=== PATIENT | female | born 1950 | race Caucasian/White ===

== ENCOUNTER 2019-02-10 19:04 | Inpatient (IN) ==
[2019-02-10] MEDS ORDERED: SODIUM CHLORIDE 0.9% 1,000 ML IV STA (19:39)
[2019-02-10] MEDS ORDERED: ACETAMINOPHEN 500 MG TABLET PO STA (19:44)
[2019-02-10] MEDS ORDERED: ONDANSETRON 4 MG/2 ML VIAL IV STA (19:44)
[2019-02-10 19:47] LABS: Basophils % 0.2 % (0.0-0.8); Eosinophils % 0.2 % (0.00-10.9); Hematocrit 44.3 VOL% (35.7-47.0); Immature Granulocytes % 0.2 %; Immature Granulocytes Absolute 0.01 #; Lymphocytes % 21.6 % (21.3-54.2); Mean Corpuscular HGB Conc 31.6 GM/DL (32-36); Mean Corpuscular Volume 98.7 FL (87-102); Mean Platelet Volume 10.4 FL (9.6-12.0); Monocytes % 4.7 % (1.7-12.7); Neutrophils % 73.1 % (38.7-73.9); Platelet Count 154 T/CUMM (130-400); Red Blood Count 4.49 MC/CUMM (3.8-5.5); Red Cell Distribution Width 15.5 % (9.3-17.3); White Blood Count 4.7 T/CUMM (4-12)
[2019-02-10 19:58] LABS: INR 1.3; PT Patient Result 14.4 SECS
[2019-02-10 20:10] LABS: Albumin 4.3 G/DL (3.4-5.0); Bilirubin,Total 2.1 MG/DL (0.2-1.0); Calcium 9.8 MG/DL (8.5-10.1); Osmolality,Calculated 275.7 MOS/KG (273-304); Total Protein 7.8 G/DL (6.4-8.3)
[2019-02-10 20:36] LABS: Apearance,Urine CLEAR (Clear); Bilirubin,Urine Negative (Negative); Blood, Urine Negative (Negative); Glucose,Urine (UA) Negative (Negative); Ketones,Urine 5 mg/dL (Negative); Nitrite,Urine Negative (Negative); Protein,Urine 30 MG/DL; RBC,Urine 2 /HPF (0-4); Urine Color Amber (Yellow); Urine Specific Gravity 1.016 (1.001-1.035); WBC,Urine 1 /HPF (0-6)
[2019-02-10 20:45] LABS: Barbiturates Screen,Urine Negative (Negative); Benzodiazepines Screen,Urine Negative (Negative); Cannabinoid Screen,Urine Negative (Negative); Opiate Screen,Urine Positive (Negative); Phencyclidine Screen,Urine Negative (Negative)
[2019-02-10] MEDS ORDERED: CIPROFLOXACIN INJ 400 MG in PREMIX 1 EACH IV STA (21:44)
[2019-02-10] MEDS ORDERED: METRONIDAZOLE IV ONE (21:45)
[2019-02-10] MEDS ORDERED: BUPIVACAINE MPF 0.25% /EPI 30 ML VIAL ONE (22:19)
[2019-02-10] MEDS ORDERED: LIDOCAINE 1%/EPI INJ 20 ML VIAL ONE (22:19)
[2019-02-10] MEDS ORDERED: PROMETHAZINE INJ 25 MG in SODIUM CHLORIDE 0.9% 50 ML IV PRN (22:42)
[2019-02-10] MEDS ORDERED: ONDANSETRON 4 MG/2 ML VIAL IV PRN ×2 (22:42→23:30)
[2019-02-10] MEDS ORDERED: MEPERIDINE 25 MG/1 ML VIAL IV PRN (22:42)
[2019-02-10] MEDS ORDERED: HYDROmorphone 2 MG/1 ML VIAL IV PRN (22:42)
[2019-02-10] MEDS ORDERED: MORPHINE 4 MG/1 ML VIAL IV PRN (23:30)
[2019-02-10] MEDS ORDERED: ACETAMINOPHEN 325 MG TABLET PO PRN (23:30)
[2019-02-10] MEDS ORDERED: dilTIAZem Drip 125 MG/125 ML PREMIX IV ONE (23:40)
[2019-02-10] MEDS ORDERED: SUGAMMADEX 200 MG/2 ML VIAL IV ONE (23:41)
[2019-02-10] MEDS ORDERED: ONDANSETRON 4 MG/2 ML VIAL ONE (23:50)
[2019-02-10] MEDS ORDERED: HYDROmorphone 2 MG/1 ML VIAL ONE (23:50)
[2019-02-11] MEDS ORDERED: LACTATED RINGERS 1,000 ML IV ONE ×2 (00:02→00:22)
[2019-02-11] MEDS ORDERED: fentaNYL 100 MCG/2 ML VIAL ONE (00:21)
[2019-02-11] MEDS ORDERED: SEVOFLURANE 1 UNIT/15 MINUTE INH ONE (00:21)
[2019-02-11] MEDS ORDERED: ONDANSETRON 4 MG/2 ML VIAL ONE (00:21)
[2019-02-11] MEDS ORDERED: PHENYLEPHRINE 1 MG/10 ML SYRINGE IV ONE (00:22)
[2019-02-11] MEDS ORDERED: GLYCOPYRROLATE 0.4 MG/2 ML VIAL ONE (00:22)
[2019-02-11] MEDS ORDERED: DILTIAZEM 50 MG/10 ML VIAL IV ONE (00:22)
[2019-02-11] MEDS ORDERED: ROCURONIUM 100 MG/10 ML VIAL IV ONE (00:22)
[2019-02-11] MEDS ORDERED: ETOMIDATE 40 MG/20 ML VIAL IV ONE (00:22)
[2019-02-11] MEDS ORDERED: METOPROLOL TARTRATE 5 MG/5 ML VIAL IV ONE (00:22)
[2019-02-11] MEDS ORDERED: ESMOLOL 100 MG/10 ML VIAL IV ONE (00:22)
[2019-02-11] MEDS ORDERED: NEOSTIGMINE 10 MG/10 ML VIAL ONE (00:22)
[2019-02-11] MEDS: NOREPINEPHRINE 8 MG in SODIUM CHLORIDE 0.9% 242 ML IV PRN ×2 (00:30→10:09)
[2019-02-11] MEDS: LACTATED RINGERS 1,000 ML IV SCH ×3 (01:03→19:31)
[2019-02-11] MEDS: dilTIAZem Drip 125 MG/125 ML PREMIX IV SCH (01:06)
[2019-02-11 05:50] LABS: Basophils % 0.4 % (0.0-0.8); Hematocrit 40.1 VOL% (35.7-47.0); Hemoglobin 12.8 GM/DL (12.0-16.0); Immature Granulocytes % 0.4 %; Immature Granulocytes Absolute 0.04 #; Lymphocytes # 1.2 10*3/uL (1.4-4.0); Lymphocytes % 11.3 % (21.3-54.2); Mean Corpuscular HGB Conc 31.9 GM/DL (32-36); Monocytes % 7.1 % (1.7-12.7); Neutrophils % 80.8 % (38.7-73.9); Platelet Count 143 T/CUMM (130-400); Red Blood Count 4.05 MC/CUMM (3.8-5.5); Red Cell Distribution Width 15.7 % (9.3-17.3); White Blood Count 10.8 T/CUMM (4-12)
[2019-02-11 06:07] LABS: Calcium 9.1 MG/DL (8.5-10.1); Osmolality,Calculated 275.7 MOS/KG (273-304)
[2019-02-11] MEDS: metroNIDAZOLE INJ 500 MG in PREMIX 1 EACH IV SCH ×3 (06:09→22:22)
[2019-02-11 06:29] LABS: Anisocytosis 1+; Band Neutrophils 10 % (0-10); Lymphocytes 5 % (20-55); Segmented Neutrophils 84 % (50-85); Total Cells Counted 100
[2019-02-11 06:30] LABS: Platelet Estimate Adequate
[2019-02-11] MEDS ORDERED: KETOROLAC 30 MG/1 ML VIAL IV ONE (07:36)
[2019-02-11] MEDS ORDERED: PANTOPRAZOLE 40 MG TABLET PO SCH (09:00)
[2019-02-11] MEDS: PANTOPRAZOLE 40 MG VIAL IV SCH (10:08)
[2019-02-11] MEDS: CIPROFLOXACIN INJ 400 MG in PREMIX 1 EACH IV SCH ×3 (10:16→20:44)
[2019-02-11] MEDS: DILTIAZEM CD 120 MG CAPSULE PO SCH ×2 (12:42→20:44)
[2019-02-11] MEDS: HYDROXYCHLOROQUINE 200 MG TABLET PO SCH (12:43)
[2019-02-11] MEDS: KETOROLAC 15 MG/1 ML VIAL IV SCH ×2 (12:43→18:30)
[2019-02-11] MEDS: METOPROLOL TARTRATE 100 MG TABLET PO SCH ×2 (12:44→20:45)
[2019-02-11] MEDS: GABAPENTIN 300 MG CAPSULE PO SCH ×2 (14:49→20:44)
[2019-02-11] MEDS ORDERED: WARFARIN 4 MG TABLET PO SCH (18:00)
[2019-02-12] MEDS: dilTIAZem Drip 125 MG/125 ML PREMIX IV SCH ×2 (00:14→22:58)
[2019-02-12] MEDS: KETOROLAC 15 MG/1 ML VIAL IV SCH ×4 (02:05→18:07)
[2019-02-12] MEDS: LACTATED RINGERS 1,000 ML IV SCH ×3 (02:06→14:34)
[2019-02-12] MEDS: metroNIDAZOLE INJ 500 MG in PREMIX 1 EACH IV SCH ×3 (05:52→23:17)
[2019-02-12] MEDS: LEVOTHYROXINE 50 MCG TABLET PO SCH (06:21)
[2019-02-12 06:28] LABS: Basophils % 0.1 % (0.0-0.8); Eosinophils # 0.2 10*3/uL (0.0-0.87); Eosinophils % 2.3 % (0.00-10.9); Hematocrit 35.8 VOL% (35.7-47.0); Hemoglobin 11.4 GM/DL (12.0-16.0); Immature Granulocytes % 0.4 %; Immature Granulocytes Absolute 0.03 #; Lymphocytes # 0.9 10*3/uL (1.4-4.0); Lymphocytes % 13.1 % (21.3-54.2); Mean Corpuscular HGB Conc 31.8 GM/DL (32-36); Mean Corpuscular Volume 99.4 FL (87-102); Mean Platelet Volume 10.9 FL (9.6-12.0); Monocytes % 5.9 % (1.7-12.7); Neutrophils % 78.2 % (38.7-73.9); Platelet Count 98 T/CUMM (130-400); Red Cell Distribution Width 15.6 % (9.3-17.3); White Blood Count 7.1 T/CUMM (4-12)
[2019-02-12 06:30] LABS: INR 2.1
[2019-02-12 06:35] LABS: Calcium 9.1 MG/DL (8.5-10.1); Osmolality,Calculated 285.7 MOS/KG (273-304); PT Patient Result 22.2 SECS
[2019-02-12 07:15] LABS: Anisocytosis 1+; Macrocytosis 1+; Platelet Estimate Decreased
[2019-02-12] MEDS: PANTOPRAZOLE 40 MG VIAL IV SCH (08:57)
[2019-02-12] MEDS: ASPIRIN EC 81 MG TABLET PO SCH (08:58)
[2019-02-12] MEDS: DILTIAZEM CD 120 MG CAPSULE PO SCH ×2 (08:59→20:25)
[2019-02-12] MEDS: HYDROXYCHLOROQUINE 200 MG TABLET PO SCH (08:59)
[2019-02-12] MEDS: GABAPENTIN 300 MG CAPSULE PO SCH ×3 (08:59→20:26)
[2019-02-12] MEDS: SERTRALINE 50 MG TABLET PO SCH (08:59)
[2019-02-12] MEDS: CIPROFLOXACIN INJ 400 MG in PREMIX 1 EACH IV SCH ×2 (09:12→20:26)
[2019-02-12] MEDS: METOPROLOL TARTRATE 100 MG TABLET PO SCH ×2 (09:14→20:26)
[2019-02-12] MEDS ORDERED: POLYVINYL ALCOHOL 1.4% OPH SOLN 15 ML BOTTLE BOTH EYES PRN (09:29)
[2019-02-12] MEDS ORDERED: DEXTROSE 10% 250 ML BAG IV PRN (09:29)
[2019-02-12] MEDS ORDERED: GLUCAGON 1 MG VIAL IM PRN (09:29)
[2019-02-12] MEDS: INSULIN REGULAR 100 UNIT/ML SUBCUT SCH ×3 (12:21→23:18)
[2019-02-12] MEDS: WARFARIN 4 MG TABLET PO SCH (18:06)
[2019-02-13] MEDS: LACTATED RINGERS 1,000 ML IV SCH ×4 (00:28→19:30)
[2019-02-13] MEDS: KETOROLAC 15 MG/1 ML VIAL IV SCH ×4 (01:20→18:15)
[2019-02-13 04:57] LABS: Eosinophils # 0.2 10*3/uL (0.0-0.87); Eosinophils % 4.4 % (0.00-10.9); Hematocrit 32.1 VOL% (35.7-47.0); Hemoglobin 10.1 GM/DL (12.0-16.0); Immature Granulocytes % 0.4 %; Immature Granulocytes Absolute 0.02 #; Lymphocytes # 0.6 10*3/uL (1.4-4.0); Lymphocytes % 11.4 % (21.3-54.2); Mean Corpuscular HGB Conc 31.5 GM/DL (32-36); Mean Platelet Volume 11.3 FL (9.6-12.0); Monocytes % 7.3 % (1.7-12.7); Neutrophils % 76.5 % (38.7-73.9); Platelet Count 82 T/CUMM (130-400); Red Blood Count 3.21 MC/CUMM (3.8-5.5); Red Cell Distribution Width 15.6 % (9.3-17.3); White Blood Count 4.8 T/CUMM (4-12)
[2019-02-13 05:24] LABS: Albumin 2.4 G/DL (3.4-5.0); Bilirubin,Total 1.1 MG/DL (0.2-1.0); Calcium 8.9 MG/DL (8.5-10.1); Osmolality,Calculated 281.1 MOS/KG (273-304); Total Protein 5.1 G/DL (6.4-8.3)
[2019-02-13] MEDS: INSULIN REGULAR 100 UNIT/ML SUBCUT SCH ×3 (05:45→17:45)
[2019-02-13 05:48] LABS: Anisocytosis 1+; Band Neutrophils 5 % (0-10); Eosinophils 1 % (0-10); Lymphocytes 12 % (20-55); Segmented Neutrophils 75 % (50-85); Total Cells Counted 100
[2019-02-13 05:49] LABS: Ovalocytes 1+; Platelet Estimate Decreased
[2019-02-13 06:03] LABS: INR 3.6
[2019-02-13 06:06] LABS: PT Patient Result 38.2 SECS
[2019-02-13] MEDS: LEVOTHYROXINE 50 MCG TABLET PO SCH (06:31)
[2019-02-13] MEDS: metroNIDAZOLE INJ 500 MG in PREMIX 1 EACH IV SCH ×3 (06:31→22:59)
[2019-02-13] MEDS: DILTIAZEM CD 120 MG CAPSULE PO SCH (09:30)
[2019-02-13] MEDS: GABAPENTIN 300 MG CAPSULE PO SCH ×3 (09:30→20:23)
[2019-02-13] MEDS: SERTRALINE 50 MG TABLET PO SCH (09:30)
[2019-02-13] MEDS: ASPIRIN EC 81 MG TABLET PO SCH (09:30)
[2019-02-13] MEDS: CIPROFLOXACIN INJ 400 MG in PREMIX 1 EACH IV SCH ×2 (09:30→20:23)
[2019-02-13] MEDS: PANTOPRAZOLE 40 MG VIAL IV SCH (09:30)
[2019-02-13] MEDS: HYDROXYCHLOROQUINE 200 MG TABLET PO SCH (09:30)
[2019-02-13] MEDS: METOPROLOL TARTRATE 100 MG TABLET PO SCH ×2 (09:48→20:22)
[2019-02-13] MEDS: dilTIAZem Drip 125 MG/125 ML PREMIX IV SCH (23:56)
[2019-02-14] MEDS: KETOROLAC 15 MG/1 ML VIAL IV SCH ×4 (00:11→18:45)
[2019-02-14] MEDS: INSULIN REGULAR 100 UNIT/ML SUBCUT SCH ×4 (00:27→18:41)
[2019-02-14] MEDS: ALBUTEROL/IPRATROPIUM 3 ML NEB RESP TX SCH ×4 (01:31→19:03)
[2019-02-14 05:04] LABS: INR 3.5
[2019-02-14 05:10] LABS: PT Patient Result 38.1 SECS
[2019-02-14] MEDS: LACTATED RINGERS 1,000 ML IV SCH (06:17)
[2019-02-14] MEDS: metroNIDAZOLE INJ 500 MG in PREMIX 1 EACH IV SCH ×3 (06:34→23:22)
[2019-02-14] MEDS: LEVOTHYROXINE 50 MCG TABLET PO SCH (06:34)
[2019-02-14] MEDS: METOPROLOL TARTRATE 100 MG TABLET PO SCH (08:01)
[2019-02-14] MEDS: DILTIAZEM CD 120 MG CAPSULE PO SCH ×2 (08:01→20:53)
[2019-02-14] MEDS: HYDROXYCHLOROQUINE 200 MG TABLET PO SCH (08:02)
[2019-02-14] MEDS: ASPIRIN EC 81 MG TABLET PO SCH (08:02)
[2019-02-14] MEDS: GABAPENTIN 300 MG CAPSULE PO SCH ×3 (08:02→20:53)
[2019-02-14] MEDS: SERTRALINE 50 MG TABLET PO SCH (08:02)
[2019-02-14] MEDS: dilTIAZem Drip 125 MG/125 ML PREMIX IV SCH ×2 (08:11→23:04)
[2019-02-14] MEDS: PANTOPRAZOLE 40 MG VIAL IV SCH (09:57)
[2019-02-14] MEDS: CIPROFLOXACIN INJ 400 MG in PREMIX 1 EACH IV SCH ×2 (09:59→20:54)
[2019-02-14] MEDS ORDERED: FUROSEMIDE 40 MG/4 ML VIAL IV ONE (10:24)
[2019-02-14] MEDS ORDERED: TEMAZEPAM 15 MG CAPSULE PO PRN (10:28)
[2019-02-14] MEDS ORDERED: BISACODYL 10 MG SUPP RECTAL PRN (14:48)
[2019-02-14] MEDS: METOPROLOL TARTRATE 50 MG TABLET PO SCH (20:54)
[2019-02-15] MEDS: ALBUTEROL/IPRATROPIUM 3 ML NEB RESP TX SCH ×4 (00:27→19:49)
[2019-02-15] MEDS: KETOROLAC 15 MG/1 ML VIAL IV SCH ×4 (01:38→21:25)
[2019-02-15] MEDS: INSULIN REGULAR 100 UNIT/ML SUBCUT SCH ×5 (01:38→21:50)
[2019-02-15 05:10] LABS: Basophils % 0.4 % (0.0-0.8); Eosinophils # 0.4 10*3/uL (0.0-0.87); Hematocrit 35.1 VOL% (35.7-47.0); Hemoglobin 11.2 GM/DL (12.0-16.0); Immature Granulocytes % 0.6 %; Immature Granulocytes Absolute 0.03 #; Lymphocytes # 0.9 10*3/uL (1.4-4.0); Lymphocytes % 17.1 % (21.3-54.2); Mean Corpuscular HGB Conc 31.9 GM/DL (32-36); Monocytes % 8.5 % (1.7-12.7); Neutrophils % 66.4 % (38.7-73.9); Platelet Count 93 T/CUMM (130-400); Red Blood Count 3.51 MC/CUMM (3.8-5.5); Red Cell Distribution Width 15.5 % (9.3-17.3); White Blood Count 5.3 T/CUMM (4-12)
[2019-02-15 05:12] LABS: Calcium 8.7 MG/DL (8.5-10.1); Osmolality,Calculated 284.8 MOS/KG (273-304)
[2019-02-15 05:24] LABS: PT Patient Result 43.1 SECS
[2019-02-15 05:37] LABS: Eosinophils 7 % (0-10); Lymphocytes 19 % (20-55); Nucleated Red Blood Cells 1 (0-5); Segmented Neutrophils 68 % (50-85); Total Cells Counted 100
[2019-02-15 05:38] LABS: Burr Cells Slight; Hypochromasia 1+; Ovalocytes Slight; Platelet Estimate Decreased
[2019-02-15] MEDS: LEVOTHYROXINE 50 MCG TABLET PO SCH (06:34)
[2019-02-15] MEDS: metroNIDAZOLE INJ 500 MG in PREMIX 1 EACH IV SCH ×3 (06:34→23:20)
[2019-02-15] MEDS ORDERED: POTASSIUM CHLORIDE 20 MEQ TABLET PO ONE (08:00)
[2019-02-15] MEDS ORDERED: MAGNESIUM SULF RIDER 2 GM in PREMIX 1 EACH IV ONE (08:00)
[2019-02-15] MEDS: GABAPENTIN 300 MG CAPSULE PO SCH ×3 (08:39→21:55)
[2019-02-15] MEDS: PANTOPRAZOLE 40 MG TABLET PO SCH (08:39)
[2019-02-15] MEDS: SERTRALINE 50 MG TABLET PO SCH (08:39)
[2019-02-15] MEDS: HYDROXYCHLOROQUINE 200 MG TABLET PO SCH (08:39)
[2019-02-15] MEDS: ASPIRIN EC 81 MG TABLET PO SCH (08:39)
[2019-02-15] MEDS: DILTIAZEM CD 120 MG CAPSULE PO SCH ×2 (08:40→22:44)
[2019-02-15] MEDS: POTASSIUM CHLORIDE 20 MEQ TABLET PO SCH ×2 (10:06→13:25)
[2019-02-15] MEDS: METOPROLOL TARTRATE 50 MG TABLET PO SCH ×2 (10:06→22:46)
[2019-02-15] MEDS: CIPROFLOXACIN INJ 400 MG in PREMIX 1 EACH IV SCH ×2 (10:42→22:44)
[2019-02-15] MEDS ORDERED: ZALEPLON 5 MG CAPSULE PO ONE (20:32)
[2019-02-16] MEDS: ALBUTEROL/IPRATROPIUM 3 ML NEB RESP TX SCH ×4 (00:47→20:03)
[2019-02-16] MEDS: dilTIAZem Drip 125 MG/125 ML PREMIX IV SCH (01:58)
[2019-02-16] MEDS: KETOROLAC 15 MG/1 ML VIAL IV SCH ×2 (03:34→09:36)
[2019-02-16 05:14] LABS: Basophils % 0.3 % (0.0-0.8); Eosinophils # 0.5 10*3/uL (0.0-0.87); Eosinophils % 8.5 % (0.00-10.9); Hematocrit 34.2 VOL% (35.7-47.0); Hemoglobin 10.8 GM/DL (12.0-16.0); Immature Granulocytes % 0.7 %; Immature Granulocytes Absolute 0.04 #; Lymphocytes # 1.2 10*3/uL (1.4-4.0); Lymphocytes % 20.4 % (21.3-54.2); Mean Corpuscular HGB Conc 31.6 GM/DL (32-36); Mean Corpuscular Volume 100.3 FL (87-102); Mean Platelet Volume 10.7 FL (9.6-12.0); Monocytes % 10.4 % (1.7-12.7); Neutrophils % 59.7 % (38.7-73.9); Platelet Count 111 T/CUMM (130-400); Red Blood Count 3.41 MC/CUMM (3.8-5.5); Red Cell Distribution Width 15.5 % (9.3-17.3)
[2019-02-16 05:24] LABS: INR 2.7
[2019-02-16 05:27] LABS: PT Patient Result 29.4 SECS
[2019-02-16 05:37] LABS: Calcium 8.8 MG/DL (8.5-10.1); Osmolality,Calculated 284.8 MOS/KG (273-304)
[2019-02-16 05:41] LABS: Anisocytosis 1+
[2019-02-16 05:42] LABS: Platelet Estimate Adequate
[2019-02-16] MEDS: metroNIDAZOLE INJ 500 MG in PREMIX 1 EACH IV SCH ×3 (06:16→22:25)
[2019-02-16] MEDS: LEVOTHYROXINE 50 MCG TABLET PO SCH (09:34)
[2019-02-16] MEDS: METOPROLOL TARTRATE 50 MG TABLET PO SCH ×2 (09:35→21:09)
[2019-02-16] MEDS: HYDROXYCHLOROQUINE 200 MG TABLET PO SCH (09:35)
[2019-02-16] MEDS: DILTIAZEM CD 120 MG CAPSULE PO SCH ×2 (09:35→21:07)
[2019-02-16] MEDS: INSULIN REGULAR 100 UNIT/ML SUBCUT SCH ×4 (09:35→21:09)
[2019-02-16] MEDS: CIPROFLOXACIN INJ 400 MG in PREMIX 1 EACH IV SCH ×2 (09:35→21:08)
[2019-02-16] MEDS: PANTOPRAZOLE 40 MG TABLET PO SCH (09:35)
[2019-02-16] MEDS: ASPIRIN EC 81 MG TABLET PO SCH (09:35)
[2019-02-16] MEDS: GABAPENTIN 300 MG CAPSULE PO SCH ×3 (09:35→21:08)
[2019-02-16] MEDS: SERTRALINE 50 MG TABLET PO SCH (09:36)
[2019-02-16] MEDS: WARFARIN 4 MG TABLET PO SCH (18:20)
[2019-02-17] MEDS: ALBUTEROL/IPRATROPIUM 3 ML NEB RESP TX SCH ×2 (00:28→07:53)
[2019-02-17] MEDS ORDERED: diphenhydrAMINE CAP 25 MG CAPSULE PO ONE (00:52)
[2019-02-17] MEDS: dilTIAZem Drip 125 MG/125 ML PREMIX IV SCH (00:54)
[2019-02-17] MEDS: metroNIDAZOLE INJ 500 MG in PREMIX 1 EACH IV SCH (06:09)
[2019-02-17] MEDS: LEVOTHYROXINE 50 MCG TABLET PO SCH (06:09)
[2019-02-17] MEDS: ASPIRIN EC 81 MG TABLET PO SCH (08:38)
[2019-02-17] MEDS: DILTIAZEM CD 120 MG CAPSULE PO SCH (08:42)
[2019-02-17] MEDS: PANTOPRAZOLE 40 MG TABLET PO SCH (08:43)
[2019-02-17] MEDS: HYDROXYCHLOROQUINE 200 MG TABLET PO SCH (08:43)
[2019-02-17] MEDS: GABAPENTIN 300 MG CAPSULE PO SCH (08:43)
[2019-02-17] MEDS: METOPROLOL TARTRATE 50 MG TABLET PO SCH (08:43)
[2019-02-17] MEDS: SERTRALINE 50 MG TABLET PO SCH (08:43)
[2019-02-17] MEDS: CIPROFLOXACIN INJ 400 MG in PREMIX 1 EACH IV SCH (08:44)
[2019-02-17 08:47] VITALS: BP 111/81
[2019-02-17] MEDS: INSULIN REGULAR 100 UNIT/ML SUBCUT SCH (08:48)
== END 2019-02-17 12:00 | disposition home or self-care (01) | DRG 338 ==
LOC: N.ED 19:04 → N.EDINP 23:30 → UNMERGE 23:30 → MERGE 23:30 → N.CC 02-11 00:09 → N.TELEN 02-15 11:26 → UNDODISIN 02-17 11:12
PROVIDERS: ADMIT Surgery; ATTEND Surgery

== ENCOUNTER 2019-03-11 09:27 | Inpatient (IN) ==
[2019-03-11] MEDS ORDERED: SODIUM CHLORIDE 0.9% 1,000 ML IV STA (09:34)
[2019-03-11] MEDS ORDERED: ONDANSETRON 4 MG/2 ML VIAL IV STA (09:34)
[2019-03-11 09:55] LABS: Basophils % 0.4 % (0.0-0.8); Eosinophils # 0.1 10*3/uL (0.0-0.87); Hematocrit 23.4 VOL% (35.7-47.0); Hemoglobin 7.5 GM/DL (12.0-16.0); Immature Granulocytes % 0.4 %; Immature Granulocytes Absolute 0.03 #; Lymphocytes # 1.2 10*3/uL (1.4-4.0); Mean Corpuscular HGB Conc 32.1 GM/DL (32-36); Mean Corpuscular Volume 99.2 FL (87-102); Mean Platelet Volume 11.5 FL (9.6-12.0); Monocytes % 5.6 % (1.7-12.7); Neutrophils % 77.6 % (38.7-73.9); Platelet Count 143 T/CUMM (130-400); Red Blood Count 2.36 MC/CUMM (3.8-5.5); Red Cell Distribution Width 14.8 % (9.3-17.3); White Blood Count 7.9 T/CUMM (4-12)
[2019-03-11 10:05] LABS: INR 1.3; PT Patient Result 14.4 SECS; Partial Thromboplastin Time 25.4 SECS (0-40)
[2019-03-11] MEDS ORDERED: SODIUM CHLORIDE 0.9% 1,000 ML IV PRN ×5 (10:19→12:41)
[2019-03-11 10:31] LABS: Alanine Aminotransferase 16 U/L (13-56); Albumin 3.2 G/DL (3.4-5.0); Alkaline Phosphatase 93 U/L (45-117); Aspartate Amino Transferase 24 U/L (0-37); Blood Urea Nitrogen 18 MG/DL (7-18); Glucose 226 MG/DL (74-106); Osmolality,Calculated 291.1 MOS/KG (273-304)
[2019-03-11] MEDS ORDERED: HYDROmorphone 2 MG/1 ML VIAL IV STA (10:38)
[2019-03-11 11:05] LABS: Apearance,Urine Slightly Hazy (Clear); Bilirubin,Urine Negative (Negative); Blood, Urine Negative (Negative); Glucose,Urine (UA) Negative (Negative); Hyaline Casts,Urine 43 /LPF (0-3); Ketones,Urine Negative (Negative); Mucus,Urine Occasional /LPF (Occasional); Nitrite,Urine Negative (Negative); Protein,Urine 30 MG/DL; RBC,Urine 1 /HPF (0-4); Urine Color Amber (Yellow); Urine Specific Gravity 1.032 (1.001-1.035); Urine Urobilinogen < 2.0 EU/DL (0.2-1.0); WBC,Urine 1 /HPF (0-6)
[2019-03-11] MEDS ORDERED: ceFAZolin 1,000 MG VIAL ONE (12:53)
[2019-03-11] MEDS ORDERED: ONDANSETRON 4 MG/2 ML VIAL IV PRN (13:57)
[2019-03-11] MEDS ORDERED: PROPOFOL 1,000 MG/100 ML BOTTLE IV ONE (14:00)
[2019-03-11] MEDS: PROPOFOL 1,000 MG/100 ML BOTTLE IV SCH (14:30)
[2019-03-11] MEDS ORDERED: PROPOFOL 200 MG/20 ML VIAL IV ONE (14:35)
[2019-03-11] MEDS ORDERED: fentaNYL 100 MCG/2 ML VIAL ONE (14:36)
[2019-03-11] MEDS ORDERED: MIDAZOLAM 2 MG/2 ML VIAL ONE (14:36)
[2019-03-11] MEDS ORDERED: ALBUMIN 5% 12.5 GM/250 ML VIAL IV ONE (14:36)
[2019-03-11] MEDS ORDERED: SEVOFLURANE 1 UNIT/15 MINUTE INH ONE (14:36)
[2019-03-11] MEDS ORDERED: PHENYLEPHRINE DRIP 20 MG/250 ML PREMIX IV ONE (14:36)
[2019-03-11] MEDS ORDERED: SODIUM CHLORIDE 0.9% 1,000 ML IV ONE (14:37)
[2019-03-11] MEDS ORDERED: METOPROLOL TARTRATE 5 MG/5 ML VIAL IV ONE (14:37)
[2019-03-11] MEDS ORDERED: ETOMIDATE 40 MG/20 ML VIAL IV ONE (14:37)
[2019-03-11] MEDS ORDERED: SUCCINYLCHOLINE 200 MG/10 ML VIAL ONE (14:37)
[2019-03-11] MEDS ORDERED: LACTATED RINGERS 2,000 ML IV ONE (14:37)
[2019-03-11] MEDS ORDERED: ROCURONIUM 100 MG/10 ML VIAL IV ONE (14:37)
[2019-03-11] MEDS ORDERED: PHENYLEPHRINE 1 MG/10 ML SYRINGE IV ONE (14:37)
[2019-03-11 14:38] LABS: ABG Base Excess -2.5 MMOL/L (-2.5-2.5); ABG HCO3 22.3 MMOL/L (20-26); ABG Oxygen Saturation 97.9 % (95-100); ABG PCO2 39.7 MM HG (35-48); ABG PH 7.364 (7.35-7.45); ABG PO2 95.7 MM HG (80-95); ABG TCO2 20.7 MMOL/L (23-27)
[2019-03-11 14:42] LABS: Basophils % 0.2 % (0.0-0.8); Hematocrit 29.2 VOL% (35.7-47.0); Hemoglobin 9.3 GM/DL (12.0-16.0); Immature Granulocytes % 0.5 %; Immature Granulocytes Absolute 0.05 #; Lymphocytes # 0.8 10*3/uL (1.4-4.0); Lymphocytes % 8.2 % (21.3-54.2); Mean Corpuscular HGB Conc 31.8 GM/DL (32-36); Mean Corpuscular Volume 93.9 FL (87-102); Mean Platelet Volume 11.3 FL (9.6-12.0); Neutrophils % 85.1 % (38.7-73.9); Red Cell Distribution Width 15.9 % (9.3-17.3); White Blood Count 9.8 T/CUMM (4-12)
[2019-03-11 14:50] LABS: Red Blood Count 3.11 MC/CUMM (3.8-5.5)
[2019-03-11 14:52] LABS: Platelet Count 74 T/CUMM (130-400)
[2019-03-11 15:21] LABS: Polychromasia Few
[2019-03-11 15:22] LABS: Hypochromasia 1+; Platelet Estimate Decreased
[2019-03-11] MEDS: DEXTROSE 5% LACTATED RINGERS 1,000 ML IV SCH ×2 (15:51→23:51)
[2019-03-11] MEDS: METOPROLOL TARTRATE 5 MG/5 ML VIAL IV SCH ×3 (15:57→16:08)
[2019-03-11] MEDS: INSULIN REGULAR 100 UNIT/ML SUBCUT SCH ×2 (16:33→21:18)
[2019-03-11 16:41] LABS: ABG Base Excess -1.9 MMOL/L (-2.5-2.5); ABG HCO3 22.8 MMOL/L (20-26); ABG Oxygen Saturation 98.1 % (95-100); ABG PCO2 47.6 MM HG (35-48); ABG PH 7.319 (7.35-7.45); ABG TCO2 22.3 MMOL/L (23-27)
[2019-03-11] MEDS ORDERED: PHYTONADIONE INJ 5 MG in SODIUM CHLORIDE 0.9% 50 ML IV ONE (17:33)
[2019-03-11] MEDS: HYDROmorphone 2 MG/1 ML VIAL IV PRN (20:02)
[2019-03-11] MEDS ORDERED: METOPROLOL TARTRATE 5 MG/5 ML VIAL IV SCH (22:00)
[2019-03-12] MEDS: PROPOFOL 1,000 MG/100 ML BOTTLE IV SCH
[2019-03-12] MEDS: HYDROmorphone 2 MG/1 ML VIAL IV PRN ×8 (00:15→22:35)
[2019-03-12 02:21] LABS: Basophils % 0.4 % (0.0-0.8); Eosinophils # 0.1 10*3/uL (0.0-0.87); Eosinophils % 0.5 % (0.00-10.9); Hematocrit 26.4 VOL% (35.7-47.0); Hemoglobin 8.5 GM/DL (12.0-16.0); Immature Granulocytes % 0.3 %; Immature Granulocytes Absolute 0.03 #; Lymphocytes # 1.6 10*3/uL (1.4-4.0); Lymphocytes % 16.4 % (21.3-54.2); Mean Corpuscular HGB Conc 32.2 GM/DL (32-36); Mean Corpuscular Volume 93.6 FL (87-102); Mean Platelet Volume 11.6 FL (9.6-12.0); Monocytes % 7.8 % (1.7-12.7); Neutrophils % 74.6 % (38.7-73.9); Platelet Count 79 T/CUMM (130-400); Red Blood Count 2.82 MC/CUMM (3.8-5.5); Red Cell Distribution Width 17.3 % (9.3-17.3); White Blood Count 9.6 T/CUMM (4-12)
[2019-03-12 02:25] LABS: INR 1.1; PT Patient Result 12.4 SECS
[2019-03-12 02:51] LABS: Anisocytosis 1+; Microcytosis 1+
[2019-03-12 02:52] LABS: Ovalocytes Few; Stomatocytes Slight
[2019-03-12 02:53] LABS: Platelet Estimate Decreased
[2019-03-12] MEDS: METOPROLOL TARTRATE 5 MG/5 ML VIAL IV SCH ×4 (04:20→22:26)
[2019-03-12 04:36] LABS: ABG Base Excess 2.8 MMOL/L (-2.5-2.5); ABG HCO3 25.6 MMOL/L (20-26); ABG Oxygen Saturation 98.1 % (95-100); ABG PCO2 31.8 MM HG (35-48); ABG PH 7.523 (7.35-7.45); ABG TCO2 26.5 MMOL/L (23-27)
[2019-03-12 05:08] LABS: Bilirubin,Total 0.7 MG/DL (0.2-1.0); Calcium 8.5 MG/DL (8.5-10.1); Osmolality,Calculated 289.7 MOS/KG (273-304); Total Protein 5.7 G/DL (6.4-8.3)
[2019-03-12] MEDS: POTASSIUM CHLORIDE RIDER 20 MEQ in PREMIX 1 EACH IV PRN ×7 (07:10→22:41)
[2019-03-12] MEDS: INSULIN REGULAR 100 UNIT/ML SUBCUT SCH ×4 (07:45→20:47)
[2019-03-12] MEDS: DEXTROSE 5% LACTATED RINGERS 1,000 ML IV SCH ×4 (08:06→23:42)
[2019-03-12] MEDS: FAMOTIDINE 20 MG/2 ML VIAL IV SCH ×2 (08:06→20:37)
[2019-03-12] MEDS: DILTIAZEM 60 MG TABLET PO SCH (08:07)
[2019-03-12] MEDS: FUROSEMIDE 40 MG/4 ML VIAL IV SCH ×2 (08:07→16:52)
[2019-03-12 10:00] LABS: Basophils % 0.3 % (0.0-0.8); Eosinophils # 0.1 10*3/uL (0.0-0.87); Hematocrit 25.8 VOL% (35.7-47.0); Hemoglobin 8.4 GM/DL (12.0-16.0); Immature Granulocytes % 0.4 %; Immature Granulocytes Absolute 0.04 #; Lymphocytes # 1.6 10*3/uL (1.4-4.0); Lymphocytes % 14.8 % (21.3-54.2); Mean Corpuscular HGB Conc 32.6 GM/DL (32-36); Mean Corpuscular Volume 92.1 FL (87-102); Mean Platelet Volume 11.3 FL (9.6-12.0); Monocytes % 9.3 % (1.7-12.7); Neutrophils % 74.2 % (38.7-73.9); Platelet Count 85 T/CUMM (130-400); Red Cell Distribution Width 17.2 % (9.3-17.3); White Blood Count 10.5 T/CUMM (4-12)
[2019-03-12 10:07] LABS: INR 1.2; PT Patient Result 12.5 SECS
[2019-03-12 11:10] LABS: ABG Base Excess 1.8 MMOL/L (-2.5-2.5); ABG Oxygen Saturation 97.5 % (95-100); ABG PCO2 42.1 MM HG (35-48); ABG PH 7.409 (7.35-7.45); ABG PO2 90.3 MM HG (80-95); ABG TCO2 24.5 MMOL/L (23-27)
[2019-03-12] MEDS: ALBUTEROL/IPRATROPIUM 3 ML NEB RESP TX SCH ×3 (11:20→19:50)
[2019-03-12 14:59] LABS: Hematocrit 23.7 VOL% (35.7-47.0); Hemoglobin 7.5 GM/DL (12.0-16.0)
[2019-03-12] MEDS ORDERED: PHYTONADIONE INJ 5 MG in SODIUM CHLORIDE 0.9% 50 ML IV ONE (15:19)
[2019-03-12] MEDS ORDERED: SODIUM CHLORIDE 0.9% 1,000 ML IV PRN (15:19)
[2019-03-12] MEDS: LEVOTHYROXINE 50 MCG TABLET PO SCH (16:42)
[2019-03-12] MEDS: METHOCARBAMOL INJ 500 MG in SODIUM CHLORIDE 0.9% 100 ML IV SCH (18:34)
[2019-03-12 21:06] LABS: Basophils % 0.3 % (0.0-0.8); Eosinophils # 0.2 10*3/uL (0.0-0.87); Eosinophils % 1.8 % (0.00-10.9); Hematocrit 26.7 VOL% (35.7-47.0); Hemoglobin 8.5 GM/DL (12.0-16.0); Immature Granulocytes % 0.5 %; Immature Granulocytes Absolute 0.06 #; Lymphocytes # 1.8 10*3/uL (1.4-4.0); Lymphocytes % 14.7 % (21.3-54.2); Mean Corpuscular HGB Conc 31.8 GM/DL (32-36); Mean Platelet Volume 11.1 FL (9.6-12.0); Monocytes % 11.7 % (1.7-12.7); Platelet Count 82 T/CUMM (130-400); Red Blood Count 2.84 MC/CUMM (3.8-5.5); Red Cell Distribution Width 17.2 % (9.3-17.3)
[2019-03-13] MEDS: ALBUTEROL/IPRATROPIUM 3 ML NEB RESP TX SCH ×4 (00:45→18:50)
[2019-03-13] MEDS: HYDROmorphone 2 MG/1 ML VIAL IV PRN ×10 (00:49→22:05)
[2019-03-13] MEDS: METHOCARBAMOL INJ 500 MG in SODIUM CHLORIDE 0.9% 100 ML IV SCH ×3 (02:27→17:40)
[2019-03-13] MEDS: POTASSIUM CHLORIDE RIDER 20 MEQ in PREMIX 1 EACH IV PRN ×2 (02:27→09:01)
[2019-03-13] MEDS: METOPROLOL TARTRATE 5 MG/5 ML VIAL IV SCH ×4 (03:39→21:58)
[2019-03-13 05:58] LABS: Basophils % 0.3 % (0.0-0.8); Eosinophils # 0.6 10*3/uL (0.0-0.87); Eosinophils % 5.1 % (0.00-10.9); Hematocrit 27.6 VOL% (35.7-47.0); Hemoglobin 8.5 GM/DL (12.0-16.0); Immature Granulocytes % 0.5 %; Immature Granulocytes Absolute 0.06 #; Lymphocytes # 1.2 10*3/uL (1.4-4.0); Lymphocytes % 10.7 % (21.3-54.2); Mean Corpuscular HGB Conc 30.8 GM/DL (32-36); Mean Corpuscular Volume 95.5 FL (87-102); Mean Platelet Volume 11.1 FL (9.6-12.0); Monocytes % 11.1 % (1.7-12.7); Neutrophils % 72.3 % (38.7-73.9); Platelet Count 89 T/CUMM (130-400); Red Blood Count 2.89 MC/CUMM (3.8-5.5); Red Cell Distribution Width 17.6 % (9.3-17.3); White Blood Count 11.1 T/CUMM (4-12)
[2019-03-13 06:26] LABS: Anisocytosis 1+; Platelet Estimate Decreased
[2019-03-13 07:58] LABS: Calcium 8.5 MG/DL (8.5-10.1); Osmolality,Calculated 282.1 MOS/KG (273-304)
[2019-03-13] MEDS: INSULIN REGULAR 100 UNIT/ML SUBCUT SCH ×4 (08:04→20:23)
[2019-03-13] MEDS: DEXTROSE 5% LACTATED RINGERS 1,000 ML IV SCH ×3 (08:05→23:20)
[2019-03-13] MEDS: DILTIAZEM 60 MG TABLET PO SCH (08:28)
[2019-03-13] MEDS: FAMOTIDINE 20 MG/2 ML VIAL IV SCH ×2 (08:29→20:24)
[2019-03-13] MEDS: FUROSEMIDE 40 MG/4 ML VIAL IV SCH ×2 (08:29→16:52)
[2019-03-13] MEDS: LEVOTHYROXINE 50 MCG TABLET PO SCH (08:29)
[2019-03-13] MEDS: METOPROLOL TARTRATE 100 MG TABLET PO SCH ×2 (10:00→20:24)
[2019-03-14] MEDS: HYDROmorphone 2 MG/1 ML VIAL IV PRN ×7 (00:25→22:51)
[2019-03-14] MEDS: ALBUTEROL/IPRATROPIUM 3 ML NEB RESP TX SCH ×4 (01:50→19:21)
[2019-03-14] MEDS: METOPROLOL TARTRATE 5 MG/5 ML VIAL IV SCH ×2 (03:45→09:46)
[2019-03-14] MEDS: METHOCARBAMOL INJ 500 MG in SODIUM CHLORIDE 0.9% 100 ML IV SCH ×3 (03:51→17:26)
[2019-03-14] MEDS: LEVOTHYROXINE 50 MCG TABLET PO SCH (05:56)
[2019-03-14] MEDS: DEXTROSE 5% LACTATED RINGERS 1,000 ML IV SCH ×3 (07:06→19:41)
[2019-03-14] MEDS: INSULIN REGULAR 100 UNIT/ML SUBCUT SCH ×4 (08:11→20:22)
[2019-03-14] MEDS: FAMOTIDINE 20 MG/2 ML VIAL IV SCH ×2 (09:46→20:21)
[2019-03-14] MEDS: FUROSEMIDE 40 MG/4 ML VIAL IV SCH ×2 (09:46→15:43)
[2019-03-14] MEDS: METOPROLOL TARTRATE 100 MG TABLET PO SCH ×2 (09:47→20:22)
[2019-03-14] MEDS: DILTIAZEM 60 MG TABLET PO SCH (09:47)
[2019-03-14] MEDS: SERTRALINE 50 MG TABLET PO SCH (20:22)
[2019-03-14] MEDS: MELATONIN 3 MG TABLET PO PRN (20:22)
[2019-03-15] MEDS: ALBUTEROL/IPRATROPIUM 3 ML NEB RESP TX SCH ×4 (00:32→19:30)
[2019-03-15] MEDS: METHOCARBAMOL INJ 500 MG in SODIUM CHLORIDE 0.9% 100 ML IV SCH ×3 (03:12→20:41)
[2019-03-15] MEDS: DEXTROSE 5% LACTATED RINGERS 1,000 ML IV SCH ×2 (04:47→11:07)
[2019-03-15 04:54] LABS: Basophils % 0.2 % (0.0-0.8); Eosinophils # 0.7 10*3/uL (0.0-0.87); Eosinophils % 7.9 % (0.00-10.9); Hematocrit 27.3 VOL% (35.7-47.0); Hemoglobin 8.6 GM/DL (12.0-16.0); Immature Granulocytes % 0.2 %; Immature Granulocytes Absolute 0.02 #; Lymphocytes # 1.3 10*3/uL (1.4-4.0); Lymphocytes % 14.8 % (21.3-54.2); Mean Corpuscular HGB Conc 31.5 GM/DL (32-36); Mean Corpuscular Volume 94.8 FL (87-102); Mean Platelet Volume 11.7 FL (9.6-12.0); Monocytes % 10.1 % (1.7-12.7); NRBC # 0.07 10*3/uL; Neutrophils % 66.8 % (38.7-73.9); Platelet Count 138 T/CUMM (130-400); Red Blood Count 2.88 MC/CUMM (3.8-5.5); White Blood Count 8.9 T/CUMM (4-12)
[2019-03-15 05:26] LABS: Calcium 8.4 MG/DL (8.5-10.1)
[2019-03-15] MEDS: POTASSIUM CHLORIDE RIDER 10 MEQ in PREMIX 1 EACH IV PRN ×5 (05:37→17:47)
[2019-03-15] MEDS: LEVOTHYROXINE 50 MCG TABLET PO SCH (05:37)
[2019-03-15] MEDS: HYDROmorphone 2 MG/1 ML VIAL IV PRN ×4 (08:49→21:25)
[2019-03-15] MEDS: FUROSEMIDE 40 MG/4 ML VIAL IV SCH ×2 (08:56→18:10)
[2019-03-15] MEDS: FAMOTIDINE 20 MG/2 ML VIAL IV SCH ×2 (09:03→21:31)
[2019-03-15] MEDS: DILTIAZEM 60 MG TABLET PO SCH (09:15)
[2019-03-15] MEDS: METOPROLOL TARTRATE 100 MG TABLET PO SCH ×2 (09:15→21:23)
[2019-03-15] MEDS: HEPARIN 5,000 UNIT/1 ML VIAL SUBCUT SCH ×2 (09:15→17:48)
[2019-03-15] MEDS: INSULIN REGULAR 100 UNIT/ML SUBCUT SCH ×3 (09:17→21:56)
[2019-03-15] MEDS: POTASSIUM CHLORIDE RIDER 20 MEQ in PREMIX 1 EACH IV SCH ×5 (13:38→23:45)
[2019-03-15] MEDS: DEXT 5% LACT RING KCL 20 MEQ 20 MEQ/1,000 ML BAG IV SCH (13:48)
[2019-03-15 17:34] LABS: Calcium 8.5 MG/DL (8.5-10.1)
[2019-03-15] MEDS: HEPARIN DRIP 25,000 UNITS/500 ML PREMIX IV SCH (20:41)
[2019-03-15] MEDS ORDERED: MAGNESIUM SULF RIDER 4 GM in PREMIX 1 EACH IV ONE (21:00)
[2019-03-15] MEDS: MELATONIN 3 MG TABLET PO PRN (21:23)
[2019-03-15] MEDS: SERTRALINE 50 MG TABLET PO SCH (21:23)
[2019-03-16] MEDS: ALBUTEROL/IPRATROPIUM 3 ML NEB RESP TX SCH ×4 (00:51→19:15)
[2019-03-16] MEDS: POTASSIUM CHLORIDE RIDER 20 MEQ in PREMIX 1 EACH IV SCH (02:24)
[2019-03-16] MEDS: METHOCARBAMOL INJ 500 MG in SODIUM CHLORIDE 0.9% 100 ML IV SCH ×2 (03:25→13:14)
[2019-03-16 05:09] LABS: Basophils % 0.5 % (0.0-0.8); Eosinophils # 0.8 10*3/uL (0.0-0.87); Eosinophils % 10.8 % (0.00-10.9); Hematocrit 26.9 VOL% (35.7-47.0); Hemoglobin 8.6 GM/DL (12.0-16.0); Immature Granulocytes % 0.4 %; Immature Granulocytes Absolute 0.03 #; Lymphocytes # 1.4 10*3/uL (1.4-4.0); Lymphocytes % 19.1 % (21.3-54.2); Mean Corpuscular Volume 93.4 FL (87-102); Mean Platelet Volume 11.3 FL (9.6-12.0); Monocytes % 10.6 % (1.7-12.7); NRBC # 0.05 10*3/uL; Neutrophils % 58.6 % (38.7-73.9); Platelet Count 160 T/CUMM (130-400); Red Blood Count 2.88 MC/CUMM (3.8-5.5); White Blood Count 7.4 T/CUMM (4-12)
[2019-03-16 05:36] LABS: Calcium 8.6 MG/DL (8.5-10.1); Osmolality,Calculated 283.8 MOS/KG (273-304)
[2019-03-16] MEDS: POTASSIUM CHLORIDE RIDER 20 MEQ in PREMIX 1 EACH IV PRN (06:02)
[2019-03-16] MEDS: DEXT 5% LACT RING KCL 20 MEQ 20 MEQ/1,000 ML BAG IV SCH ×3 (06:03→21:11)
[2019-03-16] MEDS: LEVOTHYROXINE 50 MCG TABLET PO SCH (06:03)
[2019-03-16] MEDS ORDERED: HEPARIN 5,000 UNIT/1 ML VIAL IV ONE ×2 (06:30→19:17)
[2019-03-16] MEDS: HYDROmorphone 2 MG/1 ML VIAL IV PRN ×3 (07:08→20:00)
[2019-03-16] MEDS: DILTIAZEM 60 MG TABLET PO SCH (08:25)
[2019-03-16] MEDS: METOPROLOL TARTRATE 100 MG TABLET PO SCH ×2 (08:25→21:11)
[2019-03-16] MEDS: FUROSEMIDE 40 MG/4 ML VIAL IV SCH ×2 (08:26→17:49)
[2019-03-16] MEDS: INSULIN REGULAR 100 UNIT/ML SUBCUT SCH ×4 (08:29→21:10)
[2019-03-16] MEDS: FAMOTIDINE 20 MG/2 ML VIAL IV SCH ×2 (08:31→21:11)
[2019-03-16] MEDS ORDERED: MENINGOCOCCAL VACCINE 0.5 ML VIAL SUBCUT ONE (12:49)
[2019-03-16] MEDS ORDERED: HAEMOPHILUS B CONJ VACCINE 0.5 ML/10 MCG VIAL IM ONE (12:49)
[2019-03-16] MEDS ORDERED: PNEUMOCOCCAL VACCINE (13 VALENT) 0.5 ML SYRINGE IM ONE (12:49)
[2019-03-16] MEDS: METHOCARBAMOL 750 MG TABLET PO SCH ×2 (15:08→21:11)
[2019-03-16] MEDS: SERTRALINE 50 MG TABLET PO SCH (21:11)
[2019-03-16] MEDS: MELATONIN 3 MG TABLET PO PRN (21:26)
[2019-03-17] MEDS: ALBUTEROL/IPRATROPIUM 3 ML NEB RESP TX SCH ×4 (00:34→19:16)
[2019-03-17] MEDS: HYDROmorphone 2 MG/1 ML VIAL IV PRN ×5 (01:05→21:30)
[2019-03-17] MEDS: HEPARIN DRIP 25,000 UNITS/500 ML PREMIX IV SCH (06:14)
[2019-03-17] MEDS: LEVOTHYROXINE 50 MCG TABLET PO SCH (07:03)
[2019-03-17 07:18] LABS: Basophils # 0.1 10*3/uL (0.0-0.2); Basophils % 0.6 % (0.0-0.8); Eosinophils # 1.3 10*3/uL (0.0-0.87); Eosinophils % 14.1 % (0.00-10.9); Hematocrit 28.4 VOL% (35.7-47.0); Hemoglobin 8.9 GM/DL (12.0-16.0); Immature Granulocytes % 0.3 %; Immature Granulocytes Absolute 0.03 #; Lymphocytes # 1.7 10*3/uL (1.4-4.0); Lymphocytes % 18.3 % (21.3-54.2); Mean Corpuscular HGB Conc 31.3 GM/DL (32-36); Mean Corpuscular Volume 95.9 FL (87-102); Mean Platelet Volume 11.9 FL (9.6-12.0); Monocytes % 9.6 % (1.7-12.7); NRBC # 0.02 10*3/uL; Neutrophils % 57.1 % (38.7-73.9); Platelet Count 215 T/CUMM (130-400); Red Blood Count 2.96 MC/CUMM (3.8-5.5); Red Cell Distribution Width 16.4 % (9.3-17.3); White Blood Count 9.5 T/CUMM (4-12)
[2019-03-17 07:26] LABS: Calcium 8.2 MG/DL (8.5-10.1); Osmolality,Calculated 283.8 MOS/KG (273-304)
[2019-03-17 07:38] LABS: Eosinophils 15 % (0-10); Hypochromasia 1+; Lymphocytes 12 % (20-55); Ovalocytes Slight; Platelet Estimate Adequate; Segmented Neutrophils 61 % (50-85); Total Cells Counted 100
[2019-03-17] MEDS: INSULIN REGULAR 100 UNIT/ML SUBCUT SCH ×4 (08:22→21:41)
[2019-03-17] MEDS: FUROSEMIDE 40 MG/4 ML VIAL IV SCH ×2 (08:44→18:33)
[2019-03-17] MEDS: METOPROLOL TARTRATE 100 MG TABLET PO SCH ×2 (08:46→20:23)
[2019-03-17] MEDS: METHOCARBAMOL 750 MG TABLET PO SCH ×3 (08:46→20:23)
[2019-03-17] MEDS: DILTIAZEM 60 MG TABLET PO SCH (08:47)
[2019-03-17] MEDS: FAMOTIDINE 20 MG/2 ML VIAL IV SCH ×2 (08:49→20:24)
[2019-03-17] MEDS: POLYETHYLENE GLYCOL POWDER 17 GM PACK PO SCH (08:52)
[2019-03-17] MEDS: DEXT 5% LACT RING KCL 20 MEQ 20 MEQ/1,000 ML BAG IV SCH ×2 (11:05→20:03)
[2019-03-17] MEDS ORDERED: WARFARIN 2 MG TABLET PO SCH (18:00)
[2019-03-17] MEDS: SERTRALINE 50 MG TABLET PO SCH (20:23)
[2019-03-17] MEDS: MELATONIN 3 MG TABLET PO PRN (20:23)
[2019-03-17] MEDS: POTASSIUM CHLORIDE RIDER 10 MEQ in PREMIX 1 EACH IV SCH ×2 (20:23→21:34)
[2019-03-17] MEDS ORDERED: HEPARIN 5,000 UNIT/1 ML VIAL IV ONE (20:30)
[2019-03-18] MEDS: HYDROmorphone 2 MG/1 ML VIAL IV PRN ×3 (00:45→21:47)
[2019-03-18 01:34] LABS: Basophils # 0.1 10*3/uL (0.0-0.2); Basophils % 0.5 % (0.0-0.8); Eosinophils # 1.1 10*3/uL (0.0-0.87); Eosinophils % 10.6 % (0.00-10.9); Hematocrit 26.5 VOL% (35.7-47.0); Hemoglobin 8.3 GM/DL (12.0-16.0); Immature Granulocytes % 0.4 %; Immature Granulocytes Absolute 0.04 #; Lymphocytes # 1.6 10*3/uL (1.4-4.0); Lymphocytes % 16.1 % (21.3-54.2); Mean Corpuscular HGB Conc 31.3 GM/DL (32-36); Mean Corpuscular Volume 95.7 FL (87-102); Mean Platelet Volume 11.2 FL (9.6-12.0); Monocytes % 10.8 % (1.7-12.7); Neutrophils % 61.6 % (38.7-73.9); Platelet Count 228 T/CUMM (130-400); Red Blood Count 2.77 MC/CUMM (3.8-5.5); Red Cell Distribution Width 16.3 % (9.3-17.3); White Blood Count 10.1 T/CUMM (4-12)
[2019-03-18 01:46] LABS: INR 1.1; PT Patient Result 11.4 SECS
[2019-03-18 01:50] LABS: Calcium 8.5 MG/DL (8.5-10.1); Osmolality,Calculated 284.8 MOS/KG (273-304)
[2019-03-18] MEDS: ALBUTEROL/IPRATROPIUM 3 ML NEB RESP TX SCH ×5 (02:59→22:23)
[2019-03-18] MEDS: LEVOTHYROXINE 50 MCG TABLET PO SCH (05:33)
[2019-03-18] MEDS: DEXT 5% LACT RING KCL 20 MEQ 20 MEQ/1,000 ML BAG IV SCH (07:40)
[2019-03-18] MEDS: FUROSEMIDE 40 MG/4 ML VIAL IV SCH (08:00)
[2019-03-18] MEDS: FAMOTIDINE 20 MG/2 ML VIAL IV SCH (09:00)
[2019-03-18] MEDS ORDERED: IPRATROPIUM 500 MCG/2.5 ML NEB RESP TX PRN (09:00)
[2019-03-18] MEDS: DILTIAZEM 60 MG TABLET PO SCH (09:00)
[2019-03-18] MEDS: POLYETHYLENE GLYCOL POWDER 17 GM PACK PO SCH (09:27)
[2019-03-18] MEDS: METHOCARBAMOL 750 MG TABLET PO SCH ×3 (09:35→21:43)
[2019-03-18] MEDS: glipiZIDE 5 MG TABLET PO SCH ×2 (09:35→21:40)
[2019-03-18] MEDS: ASCORBIC ACID 500 MG TABLET PO SCH (09:36)
[2019-03-18] MEDS: MONTELUKAST 10 MG TABLET PO SCH (09:36)
[2019-03-18] MEDS: CALCIUM (CARBONATE)/VITAMIN D 600 MG-400 UNIT TABLET PO SCH (09:36)
[2019-03-18] MEDS: POTASSIUM CHLORIDE 20 MEQ TABLET PO SCH ×2 (09:36→21:41)
[2019-03-18] MEDS: MULTIVITAMIN (CENTRUM) TABLET PO SCH (09:36)
[2019-03-18] MEDS: DILTIAZEM CD 120 MG CAPSULE PO SCH (09:37)
[2019-03-18] MEDS: GABAPENTIN 300 MG CAPSULE PO SCH ×3 (09:37→21:42)
[2019-03-18] MEDS: SERTRALINE 50 MG TABLET PO SCH (09:37)
[2019-03-18] MEDS: ASPIRIN EC 81 MG TABLET PO SCH (09:37)
[2019-03-18] MEDS: METOPROLOL TARTRATE 100 MG TABLET PO SCH ×3 (09:37→21:42)
[2019-03-18] MEDS: MAGNESIUM GLUCONATE 500 MG TABLET PO SCH ×2 (09:38→21:42)
[2019-03-18] MEDS: INSULIN REGULAR 100 UNIT/ML SUBCUT SCH ×4 (09:43→21:41)
[2019-03-18] MEDS ORDERED: HEPARIN 5,000 UNIT/1 ML VIAL IV ONE (13:00)
[2019-03-18] MEDS: HEPARIN DRIP 25,000 UNITS/500 ML PREMIX IV SCH ×2 (13:04→18:00)
[2019-03-18] MEDS: FUROSEMIDE 80 MG TABLET PO SCH (15:56)
[2019-03-18] MEDS: WARFARIN 4 MG TABLET PO SCH (17:59)
[2019-03-18] MEDS: FAMOTIDINE 20 MG TABLET PO SCH (21:43)
[2019-03-18] MEDS: MELATONIN 3 MG TABLET PO PRN (21:56)
[2019-03-19 05:33] LABS: INR 1.2; PT Patient Result 12.6 SECS
[2019-03-19] MEDS: LEVOTHYROXINE 50 MCG TABLET PO SCH (06:18)
[2019-03-19] MEDS: ALBUTEROL/IPRATROPIUM 3 ML NEB RESP TX SCH ×3 (07:18→19:08)
[2019-03-19] MEDS: INSULIN REGULAR 100 UNIT/ML SUBCUT SCH ×4 (07:30→22:25)
[2019-03-19] MEDS: ASPIRIN EC 81 MG TABLET PO SCH (09:07)
[2019-03-19] MEDS: MULTIVITAMIN (CENTRUM) TABLET PO SCH (09:07)
[2019-03-19] MEDS: MAGNESIUM GLUCONATE 500 MG TABLET PO SCH ×2 (09:07→20:59)
[2019-03-19] MEDS: METHOCARBAMOL 750 MG TABLET PO SCH ×3 (09:07→20:59)
[2019-03-19] MEDS: GABAPENTIN 300 MG CAPSULE PO SCH ×3 (09:08→20:59)
[2019-03-19] MEDS: CALCIUM (CARBONATE)/VITAMIN D 600 MG-400 UNIT TABLET PO SCH (09:08)
[2019-03-19] MEDS: DILTIAZEM CD 120 MG CAPSULE PO SCH (09:08)
[2019-03-19] MEDS: POTASSIUM CHLORIDE 20 MEQ TABLET PO SCH ×2 (09:08→20:59)
[2019-03-19] MEDS: ASCORBIC ACID 500 MG TABLET PO SCH (09:09)
[2019-03-19] MEDS: glipiZIDE 5 MG TABLET PO SCH ×2 (09:09→20:59)
[2019-03-19] MEDS: FUROSEMIDE 80 MG TABLET PO SCH ×2 (09:09→15:28)
[2019-03-19] MEDS: MONTELUKAST 10 MG TABLET PO SCH (09:09)
[2019-03-19] MEDS: SERTRALINE 50 MG TABLET PO SCH (09:09)
[2019-03-19] MEDS: POLYETHYLENE GLYCOL POWDER 17 GM PACK PO SCH (09:15)
[2019-03-19] MEDS: METOPROLOL TARTRATE 100 MG TABLET PO SCH ×2 (09:16→21:12)
[2019-03-19] MEDS: HEPARIN DRIP 25,000 UNITS/500 ML PREMIX IV SCH ×2 (13:08→18:00)
[2019-03-19] MEDS: WARFARIN 4 MG TABLET PO SCH (18:14)
[2019-03-19] MEDS: FAMOTIDINE 20 MG TABLET PO SCH (20:59)
[2019-03-19] MEDS: MELATONIN 3 MG TABLET PO PRN (21:24)
[2019-03-20] MEDS: ALBUTEROL/IPRATROPIUM 3 ML NEB RESP TX SCH ×4 (04:03→19:37)
[2019-03-20 04:43] LABS: INR 1.4; PT Patient Result 14.7 SECS
[2019-03-20] MEDS: LEVOTHYROXINE 50 MCG TABLET PO SCH (05:59)
[2019-03-20] MEDS: MULTIVITAMIN (CENTRUM) TABLET PO SCH (08:44)
[2019-03-20] MEDS: MAGNESIUM GLUCONATE 500 MG TABLET PO SCH ×2 (08:44→21:34)
[2019-03-20] MEDS: FUROSEMIDE 80 MG TABLET PO SCH ×2 (08:45→15:58)
[2019-03-20] MEDS: ASCORBIC ACID 500 MG TABLET PO SCH (08:45)
[2019-03-20] MEDS: glipiZIDE 5 MG TABLET PO SCH ×2 (08:45→21:33)
[2019-03-20] MEDS: POTASSIUM CHLORIDE 20 MEQ TABLET PO SCH ×2 (08:45→21:34)
[2019-03-20] MEDS: MONTELUKAST 10 MG TABLET PO SCH (08:45)
[2019-03-20] MEDS: SERTRALINE 50 MG TABLET PO SCH (08:45)
[2019-03-20] MEDS: GABAPENTIN 300 MG CAPSULE PO SCH ×3 (08:46→21:33)
[2019-03-20] MEDS: DILTIAZEM CD 120 MG CAPSULE PO SCH (08:46)
[2019-03-20] MEDS: METHOCARBAMOL 750 MG TABLET PO SCH ×3 (08:46→21:33)
[2019-03-20] MEDS: CALCIUM (CARBONATE)/VITAMIN D 600 MG-400 UNIT TABLET PO SCH (08:46)
[2019-03-20] MEDS: INSULIN REGULAR 100 UNIT/ML SUBCUT SCH ×4 (08:47→21:33)
[2019-03-20] MEDS: METOPROLOL TARTRATE 100 MG TABLET PO SCH ×2 (08:47→21:34)
[2019-03-20] MEDS: POLYETHYLENE GLYCOL POWDER 17 GM PACK PO SCH (08:50)
[2019-03-20] MEDS: ASPIRIN EC 81 MG TABLET PO SCH (08:53)
[2019-03-20] MEDS: HEPARIN DRIP 25,000 UNITS/500 ML PREMIX IV SCH (14:29)
[2019-03-20] MEDS: WARFARIN 4 MG TABLET PO SCH (17:40)
[2019-03-20] MEDS: FAMOTIDINE 20 MG TABLET PO SCH (21:33)
[2019-03-20] MEDS: MELATONIN 3 MG TABLET PO PRN (21:33)
[2019-03-21] MEDS: ALBUTEROL/IPRATROPIUM 3 ML NEB RESP TX SCH ×4 (01:00→19:32)
[2019-03-21 05:44] LABS: INR 1.5; PT Patient Result 16.1 SECS
[2019-03-21] MEDS: LEVOTHYROXINE 50 MCG TABLET PO SCH (06:23)
[2019-03-21] MEDS: INSULIN REGULAR 100 UNIT/ML SUBCUT SCH ×4 (08:30→20:50)
[2019-03-21] MEDS: ASPIRIN EC 81 MG TABLET PO SCH (08:53)
[2019-03-21] MEDS: DILTIAZEM CD 120 MG CAPSULE PO SCH (08:53)
[2019-03-21] MEDS: MULTIVITAMIN (CENTRUM) TABLET PO SCH (08:53)
[2019-03-21] MEDS: ASCORBIC ACID 500 MG TABLET PO SCH (08:53)
[2019-03-21] MEDS: SERTRALINE 50 MG TABLET PO SCH (08:53)
[2019-03-21] MEDS: MONTELUKAST 10 MG TABLET PO SCH (08:53)
[2019-03-21] MEDS: MAGNESIUM GLUCONATE 500 MG TABLET PO SCH ×2 (08:53→21:01)
[2019-03-21] MEDS: METHOCARBAMOL 750 MG TABLET PO SCH ×3 (08:54→21:02)
[2019-03-21] MEDS: METOPROLOL TARTRATE 100 MG TABLET PO SCH ×2 (08:54→21:02)
[2019-03-21] MEDS: CALCIUM (CARBONATE)/VITAMIN D 600 MG-400 UNIT TABLET PO SCH (08:54)
[2019-03-21] MEDS: POTASSIUM CHLORIDE 20 MEQ TABLET PO SCH ×2 (08:54→21:01)
[2019-03-21] MEDS: FUROSEMIDE 80 MG TABLET PO SCH ×2 (08:55→16:44)
[2019-03-21] MEDS: glipiZIDE 5 MG TABLET PO SCH ×2 (08:55→21:26)
[2019-03-21] MEDS: GABAPENTIN 300 MG CAPSULE PO SCH ×3 (08:55→21:01)
[2019-03-21] MEDS: POLYETHYLENE GLYCOL POWDER 17 GM PACK PO SCH (08:56)
[2019-03-21] MEDS: HEPARIN DRIP 25,000 UNITS/500 ML PREMIX IV SCH (16:49)
[2019-03-21 18:30] LABS: INR 1.4; PT Patient Result 14.7 SECS
[2019-03-21] MEDS: WARFARIN 4 MG TABLET PO SCH (19:00)
[2019-03-21] MEDS: FAMOTIDINE 20 MG TABLET PO SCH (21:02)
[2019-03-21] MEDS: MELATONIN 3 MG TABLET PO PRN (21:33)
[2019-03-22] MEDS: ALBUTEROL/IPRATROPIUM 3 ML NEB RESP TX SCH ×4 (00:13→19:42)
[2019-03-22 05:22] LABS: INR 1.4; PT Patient Result 14.7 SECS
[2019-03-22] MEDS: LEVOTHYROXINE 50 MCG TABLET PO SCH (05:59)
[2019-03-22] MEDS: INSULIN REGULAR 100 UNIT/ML SUBCUT SCH ×4 (08:30→22:17)
[2019-03-22] MEDS: FUROSEMIDE 80 MG TABLET PO SCH ×2 (09:00→15:35)
[2019-03-22] MEDS: GABAPENTIN 300 MG CAPSULE PO SCH ×3 (09:44→22:19)
[2019-03-22] MEDS: MONTELUKAST 10 MG TABLET PO SCH (09:45)
[2019-03-22] MEDS: ASPIRIN EC 81 MG TABLET PO SCH (09:45)
[2019-03-22] MEDS: MAGNESIUM GLUCONATE 500 MG TABLET PO SCH ×2 (09:45→22:15)
[2019-03-22] MEDS: DILTIAZEM CD 120 MG CAPSULE PO SCH (09:45)
[2019-03-22] MEDS: METHOCARBAMOL 750 MG TABLET PO SCH ×3 (09:45→22:16)
[2019-03-22] MEDS: POTASSIUM CHLORIDE 20 MEQ TABLET PO SCH ×2 (09:45→22:15)
[2019-03-22] MEDS: ASCORBIC ACID 500 MG TABLET PO SCH (09:45)
[2019-03-22] MEDS: CALCIUM (CARBONATE)/VITAMIN D 600 MG-400 UNIT TABLET PO SCH (09:46)
[2019-03-22] MEDS: SERTRALINE 50 MG TABLET PO SCH (09:46)
[2019-03-22] MEDS: METOPROLOL TARTRATE 100 MG TABLET PO SCH ×2 (09:46→22:16)
[2019-03-22] MEDS: MULTIVITAMIN (CENTRUM) TABLET PO SCH (09:46)
[2019-03-22] MEDS: glipiZIDE 5 MG TABLET PO SCH ×2 (09:46→22:15)
[2019-03-22] MEDS: POLYETHYLENE GLYCOL POWDER 17 GM PACK PO SCH (09:46)
[2019-03-22] MEDS ORDERED: WARFARIN 3 MG TABLET PO SCH (18:00)
[2019-03-22 18:28] LABS: INR 1.5; PT Patient Result 16.1 SECS
[2019-03-22 18:29] LABS: Partial Thromboplastin Time 60.6 SECS (0-40)
[2019-03-22] MEDS: HEPARIN DRIP 25,000 UNITS/500 ML PREMIX IV SCH (18:48)
[2019-03-22] MEDS: FAMOTIDINE 20 MG TABLET PO SCH (22:14)
[2019-03-22] MEDS: MELATONIN 3 MG TABLET PO PRN (22:17)
[2019-03-23] MEDS: ALBUTEROL/IPRATROPIUM 3 ML NEB RESP TX SCH ×2 (04:08→07:11)
[2019-03-23 05:38] LABS: INR 1.5; PT Patient Result 16.4 SECS
[2019-03-23] MEDS: LEVOTHYROXINE 50 MCG TABLET PO SCH (07:29)
[2019-03-23] MEDS: METOPROLOL TARTRATE 100 MG TABLET PO SCH (09:17)
[2019-03-23] MEDS: ASCORBIC ACID 500 MG TABLET PO SCH (09:17)
[2019-03-23] MEDS: METHOCARBAMOL 750 MG TABLET PO SCH (09:17)
[2019-03-23] MEDS: FUROSEMIDE 80 MG TABLET PO SCH (09:17)
[2019-03-23] MEDS: POTASSIUM CHLORIDE 20 MEQ TABLET PO SCH (09:17)
[2019-03-23] MEDS: MULTIVITAMIN (CENTRUM) TABLET PO SCH (09:18)
[2019-03-23] MEDS: GABAPENTIN 300 MG CAPSULE PO SCH (09:18)
[2019-03-23] MEDS: CALCIUM (CARBONATE)/VITAMIN D 600 MG-400 UNIT TABLET PO SCH (09:18)
[2019-03-23] MEDS: MONTELUKAST 10 MG TABLET PO SCH (09:18)
[2019-03-23] MEDS: glipiZIDE 5 MG TABLET PO SCH (09:18)
[2019-03-23] MEDS: SERTRALINE 50 MG TABLET PO SCH (09:18)
[2019-03-23] MEDS: DILTIAZEM CD 120 MG CAPSULE PO SCH (09:18)
[2019-03-23] MEDS: ASPIRIN EC 81 MG TABLET PO SCH (09:18)
[2019-03-23] MEDS: POLYETHYLENE GLYCOL POWDER 17 GM PACK PO SCH (09:19)
[2019-03-23] MEDS: MAGNESIUM GLUCONATE 500 MG TABLET PO SCH (09:19)
[2019-03-23] MEDS: INSULIN REGULAR 100 UNIT/ML SUBCUT SCH (09:19)
[2019-03-23] MEDS: HEPARIN DRIP 25,000 UNITS/500 ML PREMIX IV SCH (09:20)
[2019-03-23] MEDS ORDERED: PNEUMOCOCCAL VACCINE (13 VALENT) 0.5 ML SYRINGE IM ONE (10:30)
[2019-03-23 12:10] VITALS: BP 90/53
[2019-03-23] MEDS ORDERED: ENOXAPARIN 30 MG/0.3 ML SYRINGE SUBCUT ONE (12:21)
[2019-03-23] MEDS ORDERED: WARFARIN 4 MG TABLET PO SCH (18:00)
== END 2019-03-23 12:50 | disposition home or self-care (01) | DRG 799 ==
LOC: N.ED 09:27 → N.ICU 11:25 → N.3E 03-14 17:59
PROVIDERS: ADMIT Student in an Organized Health Care Education/Training Program; ATTEND Student in an Organized Health Care Education/Training Program

== ENCOUNTER 2019-12-18 15:55 | Observation (INO) ==
[2019-12-18 17:07] LABS: Basophils % 0.6 % (0.0-0.8); Eosinophils # 0.2 10*3/uL (0.0-0.87); Eosinophils % 3.2 % (0.00-10.9); Hematocrit 43.9 VOL% (35.7-47.0); Hemoglobin 14.6 GM/DL (12.0-16.0); Immature Granulocytes % 0.2 %; Immature Granulocytes Absolute 0.01 #; Lymphocytes # 1.6 10*3/uL (1.4-4.0); Lymphocytes % 24.2 % (21.3-54.2); Mean Corpuscular HGB Conc 33.3 GM/DL (32-36); Mean Corpuscular Volume 98.4 FL (87-102); Mean Platelet Volume 11.8 FL (9.6-12.0); Monocytes % 6.4 % (1.7-12.7); Neutrophils % 65.4 % (38.7-73.9); Platelet Count 206 T/CUMM (130-400); Red Blood Count 4.46 MC/CUMM (3.8-5.5); Red Cell Distribution Width 17.1 % (9.3-17.3); White Blood Count 6.6 T/CUMM (4-12)
[2019-12-18 17:17] LABS: INR 2.6
[2019-12-18 17:24] LABS: Apearance,Urine CLEAR (Clear); Bacteria,Urine Occasional /HPF (Few); Bilirubin,Urine Negative (Negative); Blood, Urine Negative (Negative); Glucose,Urine (UA) Negative (Negative); Hyaline Casts,Urine 43 /LPF (0-3); Ketones,Urine Negative (Negative); Mucus,Urine Occasional /LPF (Occasional); Nitrite,Urine Negative (Negative); Protein,Urine 30 MG/DL; RBC,Urine 1 /HPF (0-4); Urine Color Amber (Yellow); Urine Specific Gravity 1.015 (1.001-1.035); WBC,Urine 1 /HPF (0-6)
[2019-12-18 17:25] LABS: Acetaminophen 3.4 UG/ML (10-30); PT Patient Result 26.1 SECS (9.8-11.9); Salicylate < 2.8 MG/DL (2.8-20)
[2019-12-18 17:38] LABS: Barbiturates Screen,Urine Negative (Negative); Benzodiazepines Screen,Urine Negative (Negative); Cannabinoid Screen,Urine Negative (Negative); Opiate Screen,Urine Positive (Negative); Phencyclidine Screen,Urine Negative (Negative)
[2019-12-18 18:19] LABS: Alanine Aminotransferase 25 U/L (13-56); Albumin 3.8 G/DL (3.4-5.0); Alkaline Phosphatase 135 U/L (45-117); Aspartate Amino Transferase 41 U/L (0-37); Blood Urea Nitrogen 22 MG/DL (7-18); Calcium 9.3 MG/DL (8.5-10.1); Estimated Glom Filtration Rate 56 ML/MIN; Glucose 114 MG/DL (74-106)
[2019-12-18 18:20] LABS: Ferritin 247.6 ng/ml (8-252)
[2019-12-18 18:20] LABS: Osmolality,Calculated 280.5 MOS/KG (273-304)
[2019-12-18] MEDS ORDERED: FUROSEMIDE 40 MG/4 ML VIAL IV STA (18:24)
[2019-12-18] MEDS ORDERED: DEXTROSE 50% 25 GM/50 ML VIAL IV PRN (20:31)
[2019-12-18] MEDS ORDERED: GLUCAGON 1 MG VIAL IM PRN ×2 (20:31)
[2019-12-18] MEDS ORDERED: ONDANSETRON 4 MG/2 ML VIAL IV PRN (20:31)
[2019-12-18] MEDS ORDERED: DEXTROSE 10% 250 ML BAG IV PRN (20:38)
[2019-12-18 20:54] LABS: Basophils % 0.6 % (0.0-0.8); Eosinophils # 0.2 10*3/uL (0.0-0.87); Eosinophils % 3.1 % (0.00-10.9); Hematocrit 43.9 VOL% (35.7-47.0); Hemoglobin 14.7 GM/DL (12.0-16.0); Immature Granulocytes % 0.1 %; Immature Granulocytes Absolute 0.01 #; Lymphocytes # 2.2 10*3/uL (1.4-4.0); Lymphocytes % 32.2 % (21.3-54.2); Mean Corpuscular HGB Conc 33.5 GM/DL (32-36); Mean Platelet Volume 11.2 FL (9.6-12.0); Platelet Count 203 T/CUMM (130-400); Red Blood Count 4.48 MC/CUMM (3.8-5.5); Red Cell Distribution Width 17.1 % (9.3-17.3); White Blood Count 6.8 T/CUMM (4-12)
[2019-12-18 21:01] LABS: Apearance,Urine CLEAR (Clear); Bacteria,Urine Occasional /HPF (Few); Bilirubin,Urine Negative (Negative); Blood, Urine Small mg/dL (Negative); Glucose,Urine (UA) Negative (Negative); Hyaline Casts,Urine 10 /LPF (0-3); Ketones,Urine Negative (Negative); Nitrite,Urine Negative (Negative); Protein,Urine Negative; RBC,Urine 8 /HPF (0-4); Urine Color Yellow (Yellow); Urine Specific Gravity 1.005 (1.001-1.035); Urine Urobilinogen < 2.0 EU/DL (0.2-1.0); WBC,Urine 1 /HPF (0-6)
[2019-12-18 21:25] LABS: Albumin 3.4 G/DL (3.4-5.0); Calcium 9.5 MG/DL (8.5-10.1); Osmolality,Calculated 276.7 MOS/KG (273-304); Thyroid Stimulating Hormone 0.999 uIU/ml (0.358-3.74); Total Protein 7.8 G/DL (6.4-8.3)
[2019-12-18 21:37] LABS: Folate > 24.0 NG/ML (5.4-24.0); Vitamin B12 1651 PG/ML (211-911)
[2019-12-19] MEDS: INSULIN LISPRO 100 UNIT/ML SUBCUT SCH ×5 (01:54→21:08)
[2019-12-19] MEDS: POTASSIUM CHLORIDE 20 MEQ TABLET PO SCH ×3 (02:00→21:07)
[2019-12-19] MEDS: METOPROLOL TARTRATE 100 MG TABLET PO SCH ×3 (02:00→21:07)
[2019-12-19] MEDS: LEVOTHYROXINE 50 MCG TABLET PO SCH ×2 (02:00→21:07)
[2019-12-19] MEDS ORDERED: POTASSIUM CHLORIDE 20 MEQ TABLET PO ONE (08:08)
[2019-12-19] MEDS ORDERED: HALOPERIDOL 5 MG/ML AMP IM PRN (08:49)
[2019-12-19 09:14] LABS: INR 2.7; PT Patient Result 27.7 SECS (9.8-11.9)
[2019-12-19] MEDS: FUROSEMIDE 80 MG TABLET PO SCH ×2 (09:53→16:47)
[2019-12-19] MEDS: ASPIRIN EC 81 MG TABLET PO SCH (09:54)
[2019-12-19] MEDS: DILTIAZEM CD 120 MG CAPSULE PO SCH (09:57)
[2019-12-19] MEDS: CALCIUM (CARBONATE)/VITAMIN D 600 MG-400 UNIT TABLET PO SCH (09:57)
[2019-12-19] MEDS: MULTIVITAMIN (CENTRUM) TABLET PO SCH (09:58)
[2019-12-19] MEDS: MAGNESIUM GLUCONATE 500 MG TABLET PO SCH ×2 (09:58→21:08)
[2019-12-19] MEDS: ASCORBIC ACID 500 MG TABLET PO SCH (09:59)
[2019-12-19] MEDS: FAMOTIDINE 20 MG TABLET PO SCH (09:59)
[2019-12-19] MEDS: HYDROXYCHLOROQUINE 200 MG TABLET PO SCH (10:04)
[2019-12-19] MEDS ORDERED: WARFARIN 4 MG TABLET PO SCH (18:00)
[2019-12-19] MEDS: WARFARIN 1 MG TABLET PO SCH (19:40)
[2019-12-20 07:13] LABS: INR 2.5; PT Patient Result 25.3 SECS (9.8-11.9)
[2019-12-20] MEDS: INSULIN LISPRO 100 UNIT/ML SUBCUT SCH ×4 (07:30→21:52)
[2019-12-20 08:52] LABS: Basophils # 0.1 10*3/uL (0.0-0.2); Eosinophils # 0.1 10*3/uL (0.0-0.87); Eosinophils % 1.1 % (0.00-10.9); Hematocrit 44.1 VOL% (35.7-47.0); Immature Granulocytes % 0.2 %; Immature Granulocytes Absolute 0.01 #; Lymphocytes # 1.9 10*3/uL (1.4-4.0); Lymphocytes % 30.9 % (21.3-54.2); Mean Corpuscular Volume 95.9 FL (87-102); Mean Platelet Volume 11.6 FL (9.6-12.0); Monocytes % 6.7 % (1.7-12.7); Neutrophils % 60.1 % (38.7-73.9); Platelet Count 203 T/CUMM (130-400); Red Cell Distribution Width 17.1 % (9.3-17.3); White Blood Count 6.3 T/CUMM (4-12)
[2019-12-20 09:06] LABS: Calcium 10.1 MG/DL (8.5-10.1); Osmolality,Calculated 275.1 MOS/KG (273-304)
[2019-12-20] MEDS: FUROSEMIDE 80 MG TABLET PO SCH ×2 (09:47→18:13)
[2019-12-20] MEDS: ASPIRIN EC 81 MG TABLET PO SCH (09:48)
[2019-12-20] MEDS: CALCIUM (CARBONATE)/VITAMIN D 600 MG-400 UNIT TABLET PO SCH (09:48)
[2019-12-20] MEDS: DILTIAZEM CD 120 MG CAPSULE PO SCH (09:48)
[2019-12-20] MEDS: MULTIVITAMIN (CENTRUM) TABLET PO SCH (09:49)
[2019-12-20] MEDS: POTASSIUM CHLORIDE 20 MEQ TABLET PO SCH ×2 (09:49→21:56)
[2019-12-20] MEDS: METOPROLOL TARTRATE 100 MG TABLET PO SCH (09:50)
[2019-12-20] MEDS: MAGNESIUM GLUCONATE 500 MG TABLET PO SCH ×2 (09:50→21:56)
[2019-12-20] MEDS: FAMOTIDINE 20 MG TABLET PO SCH (09:51)
[2019-12-20] MEDS: HYDROXYCHLOROQUINE 200 MG TABLET PO SCH (09:51)
[2019-12-20] MEDS: ASCORBIC ACID 500 MG TABLET PO SCH (09:52)
[2019-12-20] MEDS ORDERED: SODIUM CHLORIDE 0.9% 1,000 ML IV SCH (15:30)
[2019-12-20 16:04] LABS: Basophils % 0.5 % (0.0-0.8); Eosinophils # 0.1 10*3/uL (0.0-0.87); Eosinophils % 0.9 % (0.00-10.9); Hematocrit 43.2 VOL% (35.7-47.0); Hemoglobin 14.4 GM/DL (12.0-16.0); Immature Granulocytes % 0.2 %; Immature Granulocytes Absolute 0.01 #; Lymphocytes % 34.9 % (21.3-54.2); Mean Corpuscular HGB Conc 33.3 GM/DL (32-36); Mean Corpuscular Volume 97.3 FL (87-102); Mean Platelet Volume 11.7 FL (9.6-12.0); Monocytes % 10.7 % (1.7-12.7); Neutrophils % 52.8 % (38.7-73.9); Platelet Count 210 T/CUMM (130-400); Red Blood Count 4.44 MC/CUMM (3.8-5.5); Red Cell Distribution Width 16.8 % (9.3-17.3); White Blood Count 5.8 T/CUMM (4-12)
[2019-12-20 16:12] LABS: INR 2.7; Partial Thromboplastin Time 37.6 SECS (23.9-33.8)
[2019-12-20 16:13] LABS: Albumin 3.5 G/DL (3.4-5.0); Bilirubin,Total 0.9 MG/DL (0.2-1.0); Calcium 9.4 MG/DL (8.5-10.1); Osmolality,Calculated 277.8 MOS/KG (273-304); Total Protein 7.8 G/DL (6.4-8.3)
[2019-12-20 16:17] LABS: Troponin I 0.019 NG/ML (0.00-0.045)
[2019-12-20 16:23] LABS: PT Patient Result 27.8 SECS (9.8-11.9)
[2019-12-20] MEDS: WARFARIN 1 MG TABLET PO SCH (18:13)
[2019-12-20] MEDS: LEVOTHYROXINE 50 MCG TABLET PO SCH (21:56)
[2019-12-21] MEDS: METOPROLOL TARTRATE 100 MG TABLET PO SCH ×2 (05:05→09:09)
[2019-12-21 06:30] LABS: Basophils % 0.7 % (0.0-0.8); Eosinophils # 0.1 10*3/uL (0.0-0.87); Eosinophils % 1.1 % (0.00-10.9); Hematocrit 43.8 VOL% (35.7-47.0); Hemoglobin 14.5 GM/DL (12.0-16.0); Immature Granulocytes % 0.2 %; Immature Granulocytes Absolute 0.01 #; Lymphocytes # 1.7 10*3/uL (1.4-4.0); Lymphocytes % 29.8 % (21.3-54.2); Mean Corpuscular HGB Conc 33.1 GM/DL (32-36); Mean Corpuscular Volume 97.6 FL (87-102); Mean Platelet Volume 12.1 FL (9.6-12.0); Monocytes % 9.6 % (1.7-12.7); Neutrophils % 58.6 % (38.7-73.9); Platelet Count 222 T/CUMM (130-400); Red Blood Count 4.49 MC/CUMM (3.8-5.5); Red Cell Distribution Width 17.2 % (9.3-17.3); White Blood Count 5.7 T/CUMM (4-12)
[2019-12-21 06:45] LABS: INR 2.4; PT Patient Result 24.3 SECS (9.8-11.9)
[2019-12-21] MEDS: INSULIN LISPRO 100 UNIT/ML SUBCUT SCH ×2 (08:07→12:34)
[2019-12-21] MEDS: FUROSEMIDE 80 MG TABLET PO SCH (09:10)
[2019-12-21] MEDS: DILTIAZEM CD 120 MG CAPSULE PO SCH (09:10)
[2019-12-21] MEDS: FAMOTIDINE 20 MG TABLET PO SCH (09:10)
[2019-12-21] MEDS: ASCORBIC ACID 500 MG TABLET PO SCH (09:10)
[2019-12-21] MEDS: POTASSIUM CHLORIDE 20 MEQ TABLET PO SCH (09:10)
[2019-12-21] MEDS: CALCIUM (CARBONATE)/VITAMIN D 600 MG-400 UNIT TABLET PO SCH (09:10)
[2019-12-21] MEDS: MAGNESIUM GLUCONATE 500 MG TABLET PO SCH (09:10)
[2019-12-21] MEDS: MULTIVITAMIN (CENTRUM) TABLET PO SCH (09:10)
[2019-12-21] MEDS: ASPIRIN EC 81 MG TABLET PO SCH (09:10)
[2019-12-21] MEDS: HYDROXYCHLOROQUINE 200 MG TABLET PO SCH (09:11)
[2019-12-21 12:12] VITALS: BP 96/64
[2019-12-21 17:44] LABS: Calcium 10.1 MG/DL (8.5-10.1); Osmolality,Calculated 284.3 MOS/KG (273-304)
== END 2019-12-21 13:31 | disposition home health service (06) ==
LOC: N.EDINP 15:55 → N.ED 15:55 → N.3E 23:54
PROVIDERS: ADMIT Internal Medicine; ATTEND Internal Medicine